=== PATIENT | female | born 1960 | race Caucasian/White ===

== ENCOUNTER → 2016-08-25 | Outpatient (CLI) | payer OTHER | END | disposition home or self-care (01) | LOC: CFH 10:00 | PROVIDERS: ATTEND Family Medicine | DX: Z12.31 Encounter for screening mammogram for malignant neoplasm of breast (principal); Z80.3 Family history of malignant neoplasm of breast | CPT/HCPCS: G0202 ==

== ENCOUNTER 2020-10-30 11:21 | Day surgery (SDC) | payer OTHER ==
[~2020-10-30] VITALS: Ht 165.1 cm; Wt 129.1 kg
[~2020-10-30 11:21] MED LIST: BIOT1TAB2 PO; LOSA100T14 PO; NAPR-685 PO; POTA10TA31 PO; TRIA1TAB5 PO; TURM1POW2 PO; [UNRECOGNIZED DRUG - OTHER] PO; [UNRECOGNIZED DRUG - OTHER] PO
[2020-10-30 11:48] VITALS: BP 160/111
[2020-10-30] MEDS ORDERED: CHLORHEXIDINE 15 ML UDC ONE (11:57)
[2020-10-30] MEDS ORDERED: LACTATED RINGERS 1,000 ML IV SCH (12:00)
[2020-10-30] MEDS ORDERED: CHLORHEXIDINE 15 ML UDC PO ONE (12:00)
[2020-10-30 12:44] VITALS: BP 160/111
[2020-10-30] MEDS ORDERED: FENTANYL PF 100 MCG/2ML IV PRN (13:00)
[2020-10-30] MEDS ORDERED: ONDANSETRON 2MG/ML, 2ML IVPush PRN (13:00)
[2020-10-30] MEDS ORDERED: PROPOFOL 50 ML ONE ×2 (13:03→13:31)
== END 2020-10-30 14:50 | disposition home or self-care (01) ==
LOC: OUT 11:21
PROVIDERS: ATTEND Internal Medicine Gastroenterology
DX: R19.5 Other fecal abnormalities (principal); K57.30 Diverticulosis of large intestine without perforation or abscess without bleeding; K64.0 First degree hemorrhoids; I10 Essential (primary) hypertension; Z79.899 Other long term (current) drug therapy; Z91.038 Other insect allergy status; Z90.49 Acquired absence of other specified parts of digestive tract; Z98.890 Other specified postprocedural states; Z80.0 Family history of malignant neoplasm of digestive organs
CPT/HCPCS: 45378; 93005; J2704; J7120